=== PATIENT | male | born 1930 | race Caucasian/White ===

== ENCOUNTER 2017-01-16 14:18 | Day surgery (SDC) | payer MEDICARE, OTHER ==
[~2017-01-16] VITALS: Ht 177.8 cm; Wt 77.6 kg
[~2017-01-16 14:18] MED LIST: AC500T; ACET-2303; BNZ10T; CALC-793; CALC1TAB97; CALC600T; CALCIUM; CEPH500C PO; GLIP10TA13; GLIP2.5T3; GLIP2.5T9; GLIPIZIDE 2.5 MG; GLYB1.253 PO; HCTZ12.5T; HYDR-34; HYDR-34 PO; HYDR-707 PO; HYDR12.56; HYDR12.570 PO; LEVO500T2 PO; LOVA20TA2; LOVA20TA2 PO; MAGN400T6 PO; METF500T; METF500T4; METO50TA7; METO50TA7 PO; MTF500T; MULT-608; MULTIVIT; NEFA150T; OMEP20CA12; OMEP20TA7 PO; PHEN-640 PO; RANI-10; RANI150T66; SIMV40TA2; SULF1TAB38
--- OUTSIDE RECORDS SUMMARY | 2017-01-16 14:25 | XMS REPORT | Continuity of Care Document ---
Author Author [facility] Organization [facility] Address Unknown Phone Unavailable Care Team Providers Care Research Phlebotomist Name Role Phone LEI DESIR DO PCP Insurance Providers Payer Name Policy Number Subscriber Name Relationship Wps Medicare [id number] Leander Jacques 18 Self / Same As Patient Comm Crossover Enter Ins Name [id number] Leander Jacques Self / Same As Patient Advance Directives Directive Response Recorded Date/Time Advance Directives No 03/31/16 6:45am Health Care Power of Nutritional Services Cook No 03/31/16 6:45am Organ Donor No 03/31/16 6:45am Resuscitation Status Full Code 03/31/16 6:45am Problems No problem information available. Medications Current Home Medications Medication Dose Units Route Directions Days/Qty Instructions Start Date Lovastatin (Mevacor) 20 Mg 20 Mg Oral Daily 03/16/09 Hydrochlorothiazide 12.5 Mg 12.5 Mg Oral Daily 03/16/09 Metoprolol Succinate 50 Mg 50 Mg Oral Twice A Day 03/16/09 Multivitamins 1 Tab 03/16/09 Glyburide 1.25 Mg 1.25 Mg Oral Twice A Day 03/30/16 Omeprazole 20 Mg 20 Mg Oral Twice A Day 03/30/16 Levofloxacin 500 Mg 500 Mg Oral Daily 5 called in to [facility] pharmacy. 03/31/16 Phenazopyridine Hcl 200 Mg 1 Tab Oral Three Times A Day for Spasms 20 called in to [facility] pharmacy. 03/31/16 Past Home Medications Medication Directions Ordered Status [Glipizide 2.5 Mg] , 09/12/07 Discontinued Simvastatin 40 Mg Tablet, 09/12/07 Discontinued Metformin Hcl (Glucophage) 500 Mg Tablet, 09/12/07 Discontinued Omeprazole 20 Mg Capsule.dr, 09/12/07 Discontinued Metoprolol Succinate 50 Mg Tab.sr.24h, 09/12/07 Discontinued Hydrochlorothiazide 12.5 Mg Capsule, 09/12/07 Discontinued Benazepril Hcl 10 Mg Tablet, 02/28/09 Discontinued Glipizide 2.5 Mg Tab.sr.24h, 02/28/09 Discontinued Lovastatin 20 Mg Tablet, 02/28/09 Discontinued Ranitidine Hcl 150 Mg Tablet, 02/28/09 Discontinued Calcium Citrate/Vitamin D3 1 Each Tablet, 02/28/09 Discontinued Multivitamins 1 Tab Tablet, 02/28/09 Discontinued Acetaminophen 500 Mg Tablet, 02/28/09 Discontinued Metformin Hcl 500 Mg Tablet, 02/28/09 Discontinued Hydrochlorothiazide 12.5 Mg Tablet, 03/01/09 Discontinued Metoprolol Succinate 50 Mg Tab, 03/01/09 Discontinued Lovastatin (Mevacor) 20 Mg Tablet, 03/01/09 Discontinued Ranitidine Hcl 150 Mg Tablet, 03/01/09 Discontinued Calcium/Vitamin D 1 Tab Tablet, 03/01/09 Discontinued Multivitamins 1 Tab Tablet, 03/01/09 Discontinued Acetaminophen 500 Mg Tab, 03/01/09 Discontinued Metformin Hcl 500 Mg Tablet, 03/01/09 Discontinued Benazepril Hcl 10 Mg Tablet, 03/01/09 Discontinued Glipizide (Glucotrol) 10 Mg Tablet, 03/01/09 Discontinued Acetaminophen/Hydrocodone Bitart 1 Ea Tablet, 1 - 2 Tab Oral Every 4HRS 03/15 Discontinued Glipizide 2.5 Mg Tab, 03/16/09 Discontinued Lovastatin (Mevacor) 20 Mg Tablet, 03/16/09 Discontinued Metformin Hcl (Glucophage) 500 Mg Tablet, 03/16/09 Discontinued Ranitidine Hcl 150 Mg Tablet, 03/16/09 Discontinued Metoprolol Succinate 50 Mg Tab, 03/16/09 Discontinued Benazepril Hcl 10 Mg Tablet, 03/16/09 Discontinued Calcium , 03/16/09 Discontinued [Multivit] , 03/16/09 Discontinued Acetaminophen/Hydrocodone Bitart 1 Ea Tablet, 03/16/09 Discontinued Trimethoprim/Sulfamethoxazole 1 Ea Tablet, 03/16/09 Discontinued Glipizide 2.5 Mg Tab, 03/16/09 Discontinued Metformin Hcl (Glucophage) 500 Mg Tablet, 03/16/09 Discontinued Ranitidine Hcl 150 Mg Tablet, 03/16/09 Discontinued Benazepril Hcl 10 Mg Tablet, 03/16/09 Discontinued Calcium Carbonate 600 Mg Tablet, 03/16/09 Discontinued Acetaminophen/Hydrocodone Bitart 1 Each Tablet, 1 - 2 Each Oral Q 4 - 6 Hr Prn 04/29/09 Discontinued Cephalexin Monohydrate (Keflex) 500 Mg Capsule, 1 Each Oral Three Times A Day 04/29/09 Discontinued Magnesium Oxide 400 Mg Tablet, 1 Each Oral Twice A Day With Meals 01/21/10 Discontinued Levofloxacin 500 Mg Tablet, 500 Mg Oral Daily 03/31/16 Discontinued Phenazopyridine Hcl 200 Mg Tablet, 1 Tab Oral Three Times A Day for Spasms Discontinued Social History Social History Problem Response Recorded Date/Time Alcohol Use Past History 03/31/2016 6:45am Recreational Drug Use No 03/31/2016 6:45am Recent Foreign Travel No 03/31/2016 6:45am Sexually Transmitted Disease Y GONORRHEA MANY YEARS AGO 03/31/2016 6:45am Smoking Status Former Smoker 03/31/2016 6:45am Query Response Start Date Stop Date Smoking Status Former Smoker Hospital Discharge Instructions Patient Instructions Physician Instructions New, Converted, or Re-newed RX: RX on Chart Plan Please make appointment to been seen in office in 2 weeks. Increase oral fluids for 48 hours and then as needed. Diet and Activity as tolerated. If questions or concerns contact your physician Or seek help at emergency department. Plan of Care Discharge Date 03/31/16 9:55am Instructions/Education Provided ANESTHESIA INSTRUCTIONS POSTOP Prescriptions See Medication Section Functional Status No functional status results. Allergies, Adverse Reactions, Alerts Allergen Type Severity Reaction Status Last Updated Penicillins ([id number]) Allergy Unknown Active 09/12/07 lisinopril ([id number]) Allergy Unknown Active 09/12/07 Aspirin Allergy Unknown Active 09/12/07 Immunizations Name Given Type Date of Pneumonia Vaccine 03/30/13 Historical Vital Signs Acute Vital Signs Vital Response Date/Time Temperature (Fahrenheit) 97.2 degrees F (97.6 - 99.5) 03/31/2016 9:55am Temperature (Calculated Celsius) 35.96103 degrees C (36.4 - 37.5) 03/31/2016 9:20am Temperature Source Tympanic 03/31/2016 9:55am Pulse Rate (adult) 59 bpm (60 - 90) 03/31/2016 9:55am Respiratory Rate 16 bpm (12 - 24) 03/31/2016 9:55am O2 Sat by Pulse Oximetry 98 % (88 - 100) 03/31/2016 9:55am Blood Pressure 127/60 mm Hg 03/31/2016 9:55am Pain Pain Intensity 0 03/31/2016 9:20am Height (Feet) 5 feet 03/31/2016 6:45am Height (Inches) 9.00 inches 03/31/2016 6:45am Height (Calculated Centimeters) 175.549957 cm 03/31/2016 6:45am Weight (Pounds) 161 pounds 03/31/2016 6:45am Weight (Ounces) 0.0 oz 03/31/2016 6:45am Weight (Calculated Grams) 60102.372 gm 03/31/2016 6:45am Weight (Calculated Kilograms) 73.462290 kilograms 03/31/2016 6:45am Calculated BMI 26.79 03/31/2016 6:45am Results Pending Laboratory Results Test Name Collection Date/Time Procedures Procedure Status Date Provider(s) Transurethral resection of bladder tumor Completed 03/31/16 KAREN TOMAS MD Tracing only of electrocardiogram Active 03/31/16 KAMRYN ALVA CRNA Encounters Encounter Location Arrival/Admit Date Discharge/Depart Date Attending Provider Departed [facility] 03/31/16 6:06am 9:55am KAREN TOMAS MD Departed Clinic [facility] 03/30/16 5:36am 03/30/16 10: 01am KAREN TOMAS MD Registered Clinic [facility] 03/23/16 11:40am KAREN TOMAS MD
--- NOTE | 2017-01-16 14:48 | ED GI ---
General Chief Complaint: Oral/Throat Problems Stated Complaint: TROUBLE SWALLOWING Nursing Triage Note: c/o difficulty swallowing x2 days worse today. Sepsis Screen: No Definite Risk Source of Information: Patient, Family Exam Limitations: No Limitations History of Present Illness Time Seen By Provider: 14:44 Initial Comments This 86-year-old white male presents with esophageal food bolus that occurred after lunch today. Patient had a history of a minor similar episodes self- limited in nature yesterday. 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 The patient has been cared for by Dr. Cotter in the past to maybe the diagnosis. Patient has required EGD for evaluation by Dr. Roach in the past. This is the first episode in which the patient has been unable to spontaneously pass the food bolus. The patient is complaining of slight mid chest discomfort. Allergies and Home Medications Allergies Coded Allergies: Penicillins (Verified Allergy, Unknown, 09/12/07) aspirin (Verified Allergy, Unknown, 09/12/07) lisinopril (Verified Allergy, Unknown, 09/12/07) Home Medications Glyburide 1.25 Mg Tablet 1.25 MG PO BID (Reported) Hydrochlorothiazide 12.5 Mg Cap 12.5 MG PO DAILY (Reported) Lovastatin 20 Mg Tablet 20 MG PO DAILY (Reported) Metoprolol Succinate 50 Mg Tab 50 MG PO BID (Reported) Multivitamins 1 Tab Tablet (Reported) Omeprazole 20 Mg Tablet.dr 20 MG PO BID (Reported) Review of Systems Constitutional: No chills, No fever EENTM: No Eye Pain Respiratory: Denies Cough, Denies Shortness of Air Cardiovascular: Chest Pain (in the anterior mid chest region and patient has slight chest discomfort from his food bolus.) Gastrointestinal: Denies Abdomen Distended, Denies Abdominal Pain, Denies Diarrhea Genitourinary: Denies Burning, Denies Frequency Musculoskeletal: No back pain Skin: No rash Psychiatric/Neurological: No Symptoms Reported Endocrine: No Symptoms Reported Hematologic/Lymphatic: No Symptoms Reported Past Nujgaga-Qptpjq-Ftcmje Hx Patient Social History Alcohol Use: Denies Use Recreational Drug Use: No Smoking Status: Former Smoker Type Used: Cigarettes Recent Foreign Travel: No Contact w/Someone Who Travel: No Recent Infectious Disease Expo: No Recent Hopitalizations: No Immunizations Up To Date Date of Pneumonia Vaccine: March 30, 2013 Seasonal Allergies Seasonal Allergies: No Surgeries HX Surgeries: Yes (HERNIA X3, R TKR, left thumb joint replaced, bilat cataract removed) Respiratory Hx Respiratory Disorders: No Cardiovascular Hx Cardiac Disorders: Yes Cardiac Disorders: High Cholesterol, Hypertension Neurological Hx Neurological Disorders: Yes (polio when 10 yrs old) Reproductive System Hx Reproductive Disorders: No Sexually Transmitted Disease: Yes (GONORRHEA MANY YEARS AGO) Genitourinary Hx Genitourinary Disorders: Yes (bladder tumor) Gastrointestinal Hx Gastrointestinal Disorders: Yes Gastrointestinal Disorders: Gastroesophageal Reflux, Diverticulosis Musculoskeletal Hx Musculoskeletal Disorders: Yes Musculoskeletal Disorders: Arthritis Endocrine Hx Endocrine Disorders: Yes Endocrine Disorders: Diabetes, Non-Insulin dep HEENT HX ENT Disorders: Yes (HAS " ONE VOCAL CORD THAT DOESN'T WORK", cataracts removed) Cancer Hx Cancer: No Psychosocial Hx Psychiatric Problems: No Integumentary HX Skin/Integumentary Disorder: No Blood Transfusions Hx Blood Disorders: No Reviewed Nursing Assessment Reviewed/Agree w Nursing PMH: Yes Physical Exam Vital Signs VS - Last 72 Hours, by Label 01/16/17 01/16/17 01/16/17 14:27 15:37 16:20 Temp 98.4 Pulse 70 82 64 Resp 18 11 17 B/P 157/79 119/66 115/64 Pulse Ox 94 99 94 O2 Delivery Room Air Room Air Room Air Capillary Refill : Less Than 3 Seconds General Appearance: WD/WN mild distress HEENT: normal ENT inspection Neck: non-tender Respiratory: chest non-tender lungs clear normal breath sounds Cardiovascular: regular rate, rhythm no edema Gastrointestinal: normal bowel sounds non tender soft Extremities: normal range of motion non-tender normal inspection Neurologic/Psychiatric: no motor/sensory deficits alert normal mood/affect Skin: normal color warm/dry Progress/Results/Core Measures Results/Orders Lab Results Laboratory Tests Test 01/16/17 15:10 Range/Units Alanine Aminotransferase (ALT/SGPT) 27 0-55 U/L Albumin 4.0 3.2-4.5 G/DL Alkaline Phosphatase 50 40-136 U/L Anion Gap 11 5-14 MMOL/L Aspartate Amino Transf (AST/SGOT) 32 5-34 U/L BUN/Creatinine Ratio 12 Basophils # (Auto) 0.1 0.0-0.1 10^3/uL Basophils (%) (Auto) 1 0-10 % Blood Urea Nitrogen 22 H 7-18 MG/DL Calcium Level 9.5 8.5-10.1 MG/DL Carbon Dioxide Level 26 21-32 MMOL/L Chloride Level 102 98-107 MMOL/L Creatinine 1.86 H 0.60-1.30 MG/DL Eosinophils # (Auto) 0.1 0.0-0.3 10^3/uL Eosinophils (%) (Auto) 2 0-10 % Estimat Glomerular Filtration Rate 35 Glucose Level 148 H 70-105 MG/DL Hematocrit 39 L 40-54 % Hemoglobin 13.1 L 13.3-17.7 G/DL Lymphocytes # (Auto) 1.8 1.0-4.0 X 10^3 Lymphocytes (%) (Auto) 24 12-44 % Mean Corpuscular Hemoglobin 31 25-34 PG Mean Corpuscular Hemoglobin Concent 34 32-36 G/DL Mean Corpuscular Volume 91 80-99 FL Mean Platelet Volume 12.8 H 7.4-10.4 FL Monocytes # (Auto) 0.6 0.0-1.0 X 10^3 Monocytes (%) (Auto) 9 0-12 % Neutrophils # (Auto) 4.7 1.8-7.8 X 10^3 Neutrophils (%) (Auto) 65 42-75 % Platelet Count 177 130-400 10^3/uL Potassium Level 4.1 3.6-5.0 MMOL/L Red Blood Count 4.24 L 4.35-5.85 10^6/uL Red Cell Distribution Width 13.4 10.0-14.5 % Sodium Level 139 135-145 MMOL/L Total Bilirubin 0.6 0.1-1.0 MG/DL Total Protein 6.8 6.4-8.2 G/DL White Blood Count 7.3 4.3-11.0 10^3/uL My Orders Orders-ANNALISA GATICA MD Cbc With Automated Diff (01/16/17 14:50) Comprehensive Metabolic Panel (01/16/17 14:50) Chest 1 View, Ap/Pa Only (01/16/17 14:50) Ns Iv 1000 Ml (Sodium Chloride 0.9%) (01/16/17 15:00) Glucagon Emergency Kit (Glucagon Emergen (01/16/17 15:00) Diazepam Injection (Valium Injection) (01/16/17 15:00) Saline Lock/Iv-Start (01/16/17 15:00) Medications Given in ED Current Medications Medications Dose Ordered Sig/Franky Route Start Time Stop Time Status Last Admin Dose Admin Diazepam 5 mg ONCE ONCE IV 01/16/17 15:00 01/16/17 15:01 DC 01/16/17 15:10 5 MG Glucagon 1 mg ONCE ONCE IV 01/16/17 15:00 01/16/17 15:01 DC 01/16/17 15:10 1 MG Vital Signs/I&O Vital Sign - Last 12Hours 01/16/17 01/16/17 01/16/17 14:27 15:37 16:20 Temp 98.4 Pulse 70 82 64 Resp 18 11 17 B/P 157/79 119/66 115/64 Pulse Ox 94 99 94 O2 Delivery Room Air Room Air Room Air Blood Pressure Mean: 105 Progress Note : Time: 16:51 Progress Note I spoke to Dr. Alexander about food bolus. Tentative arrangements were made for the patient to be scoped later today. I attempted milligram of glucagon and 5 mg of Valium IV without resolution. At this juncture the patient will be admitted for EGD with Dr. Alexander. Departure Communication Time/Spoke to Admitting Phy: 16:[address] Alexander. Impression Impression: Primary Impression: Esophageal obstruction due to food impaction Disposition: ADMITTED INPATIENT Condition: Unchanged Decision to Admit Reason: Admit from ER (General) Decision to Admit/Date: Jan 16, 2017 Time/Decision to Admit Time: 16:53 Departure-Patient Inst. Referrals: LEI DESIR DO (PCP/Family) Primary Care Physician ANNALISA GATICA MD Jan 16, 2017 14:48
[2017-01-16] MEDS ORDERED: DIAZEPAM INJ 10 MG/2 ML (VALIUM) SYR IV ONE (15:00)
[2017-01-16] MEDS ORDERED: GLUCAGON EMERGENCY 1 MG/KIT IV ONE (15:00)
[2017-01-16] MEDS ORDERED: NS IV 1000 ML 1,000 ML IV SCH (15:00)
[2017-01-16 15:22] LABS: BASOPHILS # (AUTO) 0.1 10^3/uL (0.0-0.1); BASOPHILS % (AUTO) 1 % (0-10); EOSINOPHILS # (AUTO) 0.1 10^3/uL (0.0-0.3); EOSINOPHILS % (AUTO) 2 % (0-10); LYMPHOCYTES # (AUTO) 1.8 X 10^3 (1.0-4.0); LYMPHOCYTES % (AUTO) 24 % (12-44); MEAN CORPUSCULAR HEMOGLOBIN 31 PG (25-34); MEAN CORPUSCULAR HGB CONC 34 G/DL (32-36); MEAN CORPUSCULAR VOLUME 91 FL (80-99); MEAN PLATELET VOLUME 12.8 FL (7.4-10.4); MONOCYTES # (AUTO) 0.6 X 10^3 (0.0-1.0); MONOCYTES % (AUTO) 9 % (0-12); NEUTROPHILS # (AUTO) 4.7 X 10^3 (1.8-7.8); NEUTROPHILS % (AUTO) 65 % (42-75); PLATELET COUNT 177 10^3/uL (130-400); RED BLOOD COUNT 4.24 10^6/uL (4.35-5.85); RED CELL DISTRIBUTION WIDTH 13.4 % (10.0-14.5); WHITE BLOOD COUNT 7.3 10^3/uL (4.3-11.0)
--- NOTE | 2017-01-16 15:29 | Diagnostic Imaging Report ---
EXAMINATION: Chest one view. FINDINGS: No pneumothorax, mediastinal widening or pleural fluid demonstrated. There are mild increased interstitial markings throughout both lungs, increased from the prior study. This is nonspecific. No focal pneumonia is suspected. IMPRESSION: Mild increase in interstitial markings increased from the prior study but nonspecific. No focal pneumonia is demonstrated. Dictated by: Dictated on workstation # [id number]
[2017-01-16 15:37] VITALS: BP 119/66
[2017-01-16 15:42] LABS: BILIRUBIN,TOTAL 0.6 MG/DL (0.1-1.0); CALCIUM 9.5 MG/DL (8.5-10.1); CREATININE SERUM 1.86 MG/DL (0.60-1.30); POTASSIUM 4.1 MMOL/L (3.6-5.0); TOTAL PROTEIN 6.8 G/DL (6.4-8.2)
[2017-01-16 16:20] VITALS: BP 115/64
[2017-01-16 17:19] VITALS: BP 158/67
[2017-01-16] MEDS ORDERED: NS IV 500 ML 0 ML ONE (17:22)
[2017-01-16] MEDS ORDERED: LACTATED RINGERS 1,000 ML IV ONE (17:40)
[2017-01-16] MEDS ORDERED: MIDAZOLAM 2 MG/2 ML (VERSED) VIAL ONE (17:53)
[2017-01-16] MEDS ORDERED: fentaNYL INJECTION 100 MCG/2 ML AMP ONE (17:54)
--- NOTE | 2017-01-16 18:27 | Pre-Op Note & Conscious Sedat ---
Pre-Operative Progress Note H&P Reviewed The H&P was reviewed, patient examined and no changes noted. Date H&P Reviewed: Jan 16, 2017 Time H&P Reviewed: 17:10 Pre-Op Diagnosis: Food impaction in esophagus Conscious Sedation Pre-Proced ASA Class: 2 Airway Mallampati Classification: ([place] appropriate class) I. II. III, IV Lungs Heart ASA score ASA 1: a normal healthy patient ASA 2: a patient with a mild systemic disease (mid diabetes, controlled hypertension, obesity ASA 3: a patient with a severe systemic disease that limits activity (angina , COPD, prior Myocardial infarction) ASA 4: a patient with an incapacitating disease that is a constant threat to life (CHF, renal failure) ASA 5: a moribund patient not expected to survive 24 hrs. (ruptured aneurysm) ASA 6: a declared brain patient whose organs are being harvested. For emergent operations, add the letter E after the classification Grade 2 Sedation Plan: Discussed options with patient/fam Note The patient is an appropriate candidate to undergo the planned procedure, sedation, and anesthesia. The patient immediately re-assessed prior to indication. GIANNA KRAMER MD Jan 16, 2017 6:27 pm
--- NOTE | 2017-01-16 18:27 | History & Physicial ---
History of Present Illness History of Present Illness Reason for visit/HPI Food impaction in esophagus Date of Admission Jan 16, 2017 at 4:00 pm I consulted on this patient on 01/16/17 18:24 Attending Physician Gianna Kramer MD Admitting Physician Marilee Pena DO Consult Allergies and Home Medications Allergies Coded Allergies: Penicillins (Verified Allergy, Unknown, 09/12/07) aspirin (Verified Allergy, Unknown, 09/12/07) lisinopril (Verified Allergy, Unknown, 09/12/07) Home Medications Glyburide 1.25 Mg Tablet 1.25 MG PO BID (Reported) Hydrochlorothiazide 12.5 Mg Cap 12.5 MG PO DAILY (Reported) Lovastatin 20 Mg Tablet 20 MG PO DAILY (Reported) Metoprolol Succinate 50 Mg Tab 50 MG PO BID (Reported) Multivitamins 1 Tab Tablet (Reported) Omeprazole 20 Mg Tablet.dr 20 MG PO BID (Reported) Past Rfthtfk-Yqdebq-Xeyang Hx Patient Social History Marrital Status: Employed/Student: retired Alcohol Use: Denies Use Recreational Drug Use: No Smoking Status: Former Smoker Type Used: Cigarettes Physical Abuse Screen: No Sexual Abuse: No Recent Foreign Travel: No Contact w/other who traveled: No Recent Hopitalizations: No Recent Infectious Disease Expo: No Immunizations Up To Date Date of Pneumonia Vaccine: March 30, 2013 Date of Influenza Vaccine: Aug 15, 2016 Seasonal Allergies Seasonal Allergies: No Surgeries HX Surgeries: Yes (HERNIA X3, R TKR, left thumb joint replaced, bilat cataract removed) Respiratory Hx Respiratory Disorders: No Cardiovascular Hx Cardiovascular Disorders: Yes Cardiac Disorders: High Cholesterol, Hypertension Neurological Hx Neurological Disorders: Yes (polio when 10 yrs old) Reproductive System Hx Reproductive Disorders: No Sexually Transmitted Disease: Yes (GONORRHEA MANY YEARS AGO) Genitourinary Hx Genitourinary Disorders: Yes (bladder tumor) Gastrointestinal Hx Gastrointestinal Disorders: Yes Gastrointestinal Disorders: Gastroesophageal Reflux, Hiatal Hernia, Gall Bladder Disease Musculoskeletal Hx Musculoskeletal Disorders: Yes Musculoskeletal Disorders: Arthritis Endocrine Hx Endocrine Disorders: Yes Endocrine Disorders: Diabetes, Non-Insulin dep HEENT HX ENT Disorders: Yes (HAS " ONE VOCAL CORD THAT DOESN'T WORK", cataracts removed) HEENT Disorders: Cataract Loss of Vision: Denies Hearing Impairment: Denies Cancer Hx Cancer: No Psychosocial Hx Psychiatric Problems: No Integumentary HX Skin/Integumentary Disorder: No Blood Transfusions Hx Blood Disorders: No Reviewed Nursing Assessment Reviewed/Agree w Nursing PMH: Yes Constitutional: no symptoms reported EENTM: no symptoms reported Respiratory: cough Cardiovascular: no symptoms reported Gastrointestinal: see HPI Genitourinary: no symptoms reported Musculoskeletal: no symptoms reported Skin: no symptoms reported Psychiatric/Neurological: No Symptoms Reported Physical Exam Vital Signs Vital Sign - Last 12Hours 01/16/17 14:27 Temp 98.4 Pulse 70 Resp 18 B/P 157/79 Pulse Ox 94 O2 Delivery Room Air Capillary Refill : Less Than 3 Seconds General Appearance: Anxious HEENT: PERRL/EOMI Neck: Normal Inspection Respiratory: Lungs Clear Cardiovascular: Regular Rate, Rhythm Gastrointestinal: Non Tender Soft Extremity: Normal Inspection Assessment/Plan Assessment and Plan Food impaction in esophagus-For endoscopic disimpaction Admission Diagnosis Same GIANNA KRAMER MD Jan 16, 2017 6:27 pm
--- NOTE | 2017-01-16 18:28 | Progress Note-Post Operative ---
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
--- NOTE | 2017-01-16 18:29 | Discharge Inst-Simple/Standard ---
Discharge Inst-Standard Discharge Medications New, Converted or Re-Newed RX: Other Patient Instructions/Follow Up Plan of Care/Instructions/FU: Soft diet Activity as Tolerated: Yes Discharge Diet: Soft Diet GIANNA KRAMER MD Jan 16, 2017 6:29 pm
[2017-01-16 18:50] VITALS: BP 132/71
[2017-01-16] MEDS ORDERED: MIDAZOLAM 10 MG/2 ML (VERSED) VIAL IVP PRN (19:15)
[2017-01-16] MEDS ORDERED: fentaNYL INJECTION 100 MCG/2 ML AMP IVP PRN (19:15)
[2017-01-16 20:30] VITALS: BP 132/71
--- NOTE | 2017-01-16 23:31 | PROCEDURE REPORT ---
PROCEDURE PHYSICIAN: GIANNA KRAMER DATE OF PROCEDURE: 01/16/2017 DIAGNOSES: Food impaction in the esophagus. PROCEDURE: Upper GI endoscopy with disimpaction of food. SURGEON: Dr. Kramer. INDICATION FOR THE PROCEDURE: This gentleman presented with recurrent impaction of food in his esophagus. He was offered therapeutic endoscopy. Informed consent was obtained after reviewing the procedure in detail. DESCRIPTION OF PROCEDURE: He was brought to the Intensive Care Unit and monitored in the conventional manner. He was then placed in left lateral decubitus position and conscious sedation achieved using Versed and fentanyl. The flexible gastroscope was introduced down the esophagus where impacted pieces of meat were encountered at the mid esophagus. These were gently disimpacted into the stomach. The mucosa was then irrigated with water and a thorough examination performed. FINDINGS: 1. Corkscrew type of configuration contributing to his impaction. 2. An epiphrenic diverticulum of long-standing duration. There were minimal food particles but it was felt appropriate to avoid manipulation, for fear of perforation. STOMACH AND DUODENUM: Were normal. He tolerated the procedure well and was taken back to the nursing area in a stable condition. IMPRESSION: 1. Successful disimpaction of food. 2. Corkscrew esophagus. 3. Epiphrenic diverticulum encountered. Job ID: [id number] Dictated Date: 01/16/2017 18:22:55 Filler Sifter Helper Date: 01/16/2017 23:27:15 / yvette COLLINS
--- OUTSIDE RECORDS SUMMARY | 2017-01-19 09:59 | XMS REPORT | Continuity of Care Document ---
Author Author [facility] Organization [facility] Address Unknown Phone Unavailable Care Team Providers Care Industrial Maintenance Manager Name Role Phone LEI DESIR DO PCP Insurance Providers Payer Name Policy Number Subscriber Name Relationship Wps Medicare [id number] Leander Jacques 18 Self / Same As Patient Comm Crossover Enter Ins Name [id number] Leander Jacques Self / Same As Patient Advance Directives Directive Response Recorded Date/Time Advance Directives No 03/31/16 6:45am Health Care Power of Strip Tank Tender No 03/31/16 6:45am Organ Donor No 03/31/16 [...] Mg Oral Daily 5 called in to [facility]. 03/31/16 Phenazopyridine Hcl 200 Mg 1 Tab Oral Three Times A Day for Spasms 20 called in to [facility] pharmacy. 03/31/16 Past Home Medications Medication Directions [...] Type Severity Reaction Status Last Updated Penicillins ([id number]) Allergy Unknown Active 09/12/07 lisinopril ([id number]) Allergy Unknown Active 09/12/07 Aspirin Allergy Unknown Active 09/12/07 Immunizations Name Given Type Date of Pneumonia Vaccine 03/30/13 Historical Vital Signs Acute Vital Signs Vital Response Date/Time Temperature (Fahrenheit) 97.2 degrees F (97.6 - 99.5) 03/31/2016 9:55am Temperature (Calculated Celsius) 35.85218 degrees C (36.4 - 37.5) 03/31/2016 9:20am [...] 9.00 inches 03/31/2016 6:45am Height (Calculated Centimeters) 175.062615 cm 03/31/2016 6:45am Weight (Pounds) 161 pounds 03/31/2016 6:45am Weight (Ounces) 0.0 oz 03/31/2016 6:45am Weight (Calculated Grams) 25033.372 gm 03/31/2016 6:45am Weight (Calculated Kilograms) 73.344507 kilograms 03/31/2016 6:45am Calculated BMI 26.79 03/31/2016 6:45am Results Pending Laboratory Results Test Name Collection Date/Time Procedures Procedure Status Date Provider(s) Transurethral resection of bladder tumor Completed 03/31/16 KAREN TOMAS MD Tracing only of electrocardiogram Active 03/31/16 KAMRYN ALVA CRNA Encounters Encounter Location Arrival/Admit Date Discharge/Depart Date Attending Provider Departed [facility] 03/31/16 6:06am 9:55am KAREN TOMAS MD Departed Clinic [facility] 03/30/16 5:36am 03/30/16 10: 01am KAREN TOMAS MD Registered Clinic [facility] 03/23/16 11:40am KAREN TOMAS MD
--- OUTSIDE RECORDS SUMMARY | 2017-01-19 10:00 | XMS REPORT | Continuity of Care Document ---
Author Author [facility] Organization [facility] Address Unknown Phone Unavailable Care Team Providers Care Capital Project Engineer Name Role Phone LEI DESIR DO PCP Insurance Providers Payer Name Policy Number Subscriber Name Relationship Wps Medicare [id number] Leander Jacques 19 Self / Same As Patient Comm Crossover Enter Ins Name [id number] Leander Jacques Self / Same As Patient Advance Directives Directive Response Recorded Date/Time Advance Directives No 03/31/16 6:45am Health Care Power of Automotive Mechanic No 03/31/16 6:45am Organ Donor No 03/31/16 [...] Mg Oral Daily 5 called in to [facility]. 03/31/16 Phenazopyridine Hcl 200 Mg 1 Tab Oral Three Times A Day for Spasms 20 called in to [facility] pharmacy. 03/31/16 Past Home Medications Medication Directions [...] Type Severity Reaction Status Last Updated Penicillins ([id number]) Allergy Unknown Active 09/12/07 lisinopril ([id number]) Allergy Unknown Active 09/12/07 Aspirin Allergy Unknown Active 09/12/07 Immunizations Name Given Type Date of Pneumonia Vaccine 03/30/13 Historical Vital Signs Acute Vital Signs Vital Response Date/Time Temperature (Fahrenheit) 97.2 degrees F (97.6 - 99.5) 03/31/2016 9:55am Temperature (Calculated Celsius) 35.29387 degrees C (36.4 - 37.5) 03/31/2016 9:20am [...] 9.00 inches 03/31/2016 6:45am Height (Calculated Centimeters) 175.634316 cm 03/31/2016 6:45am Weight (Pounds) 161 pounds 03/31/2016 6:45am Weight (Ounces) 0.0 oz 03/31/2016 6:45am Weight (Calculated Grams) 11799.372 gm 03/31/2016 6:45am Weight (Calculated Kilograms) 73.296536 kilograms 03/31/2016 6:45am Calculated BMI 26.79 03/31/2016 6:45am Results Pending Laboratory Results Test Name Collection Date/Time Procedures Procedure Status Date Provider(s) Transurethral resection of bladder tumor Completed 03/31/16 KAREN TOMAS MD Tracing only of electrocardiogram Active 03/31/16 KAMRYN ALVA CRNA Encounters Encounter Location Arrival/Admit Date Discharge/Depart Date Attending Provider Departed [facility] 03/31/16 6:06am 9:55am KAREN TOMAS MD Departed Clinic [facility] 03/30/16 5:36am 03/30/16 10: 01am KAREN TOMAS MD Registered Clinic [facility] 03/23/16 11:40am KAREN TOMAS MD
== END 2017-01-16 20:30 | disposition home or self-care (01) ==
LOC: EDUNIT# 14:18 → ER 14:20 → UNDOADMOB 16:00 → 4TH 16:00 → SDC 17:30 → UNDODISOB 20:30
PROVIDERS: ATTEND Surgery
DX: T18.128A Food in esophagus causing other injury, initial encounter (principal); K22.4 Dyskinesia of esophagus; K22.5 Diverticulum of esophagus, acquired; I10 Essential (primary) hypertension; E11.9 Type 2 diabetes mellitus without complications; Z79.899 Other long term (current) drug therapy
CPT/HCPCS: 36415; 71010; 80053; 85025; 96361; 96374; 96375

== ENCOUNTER 2017-06-28 09:25 | Emergency (ER) | payer MEDICARE, OTHER ==
[~2017-06-28] VITALS: Ht 177.8 cm; Wt 73.0 kg
--- OUTSIDE RECORDS SUMMARY | 2017-06-28 09:32 | XMS REPORT | Clinical Summary ---
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 Active Marilee Pena Diabetes mellitus without mention of complication, type II or unspecified type, uncontrolled HYPERTENSION 401.1 Active Marilee Pena Benign essential hypertension HYPERCHOLESTEROLEMIA 272.0 Active Marilee Pena Pure hypercholesterolemia 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 Marilee Pena Proteinuria PNEUMONIA 486 Resolved Marilee Pena Pneumonia, organism unspecified HEADACHE 784.0 Active Marilee Pena Headache HICCUPS, CHRONIC 786.8 Resolved Marilee Pena Hiccough COUGH 786.2 Resolved Marilee Pena Cough HYPOMAGNESEMIA 275.2 Resolved Marilee Pena Disorders of magnesium metabolism DIVERTICULOSIS, COLON 562.10 Resolved Marilee Pena Diverticulosis of colon (without mention of hemorrhage) BACK PAIN 724.5 Resolved Marilee Pena Backache, unspecified TINEA CRURIS 110.3 Resolved Marilee Pena Dermatophytosis of groin and perianal area BRONCHITIS 490 Resolved Marilee Pena Bronchitis, not specified as acute or chronic BACK PAIN, THORACIC REGION 724.1 Resolved Marilee Pena Pain in thoracic spine HEMATURIA, GROSS 599.7 Resolved Marilee Pena Hematuria HYPERLIPIDEMIA 272.4 Resolved Marilee Pena Other and unspecified hyperlipidemia RENAL INSUFFICIENCY 593.9 Active Mrailee Pena Unspecified disorder of kidney and ureter CHEST PAIN, ATYPICAL 786.59 Resolved Marilee Pena Other chest pain BRONCHITIS 490 Resolved Marilee Pena Bronchitis, not specified as acute or chronic DYSPHAGIA PHARYNGOESOPHAGEAL PHASE 787.24 Active Marilee Pena Dysphagia, pharyngoesophageal phase Medication List Medication Instructions Start Date Stop Date Generic Name ND Status Provider Patient Instruction DIABETA 2.5 MG TABS 1 PO BID GLYBURIDE 90388847288 Active Marilee Pena IPRATROPIUM BROMIDE 0.06 % SOLN 1 puff each nostril up to TID IPRATROPIUM BROMIDE 08388658732 Active Marilee Pena OMEPRAZOLE 40 MG CPDR 1 po daily OMEPRAZOLE 46697673636 Active Cristy Olmstead METFORMIN HCL 1000 MG TABS 1 PO BID METFORMIN HCL 24259754144 No Longer Active Marilee Pena TRIAMCINOLONE ACETONIDE 0.025 % CREA as directed TRIAMCINOLONE ACETONIDE 36729943087 Active Phil Rolle BETAMETHASONE VALERATE 0.1 % CREA Apply to affected area once daily BETAMETHASONE VALERATE 50771578758 No Longer Active Marilee Shu Pena TRIAMCINOLONE ACETONIDE 0.025 % CREA Apply to affected areas daily prn 04/01 TRIAMCINOLONE ACETONIDE 63588395705 No Longer Active Marilee Shu Pena KEFLEX 500 MG CAP 1 PO TID for 7 days CEPHALEXIN 38265877553 No Longer Active Cristy Olmstead ROBITUSSIN A-C 10-100 MG/5ML SYRUP 1 teaspoon PO Q 4-6 hr prn ROBITUSSIN A-C 10-100 MG/5ML SYRUP No Longer Active Marilee Shu Pena BIAXIN 500 MG TAB 1 PO BID CLARITHROMYCIN 10878422241 No Longer Active Marilee Shu Pena PROTONIX 40 MG TBEC 1 po qd PANTOPRAZOLE SODIUM 10025069304 No Longer Active Marilee Shu Pena OMEPRAZOLE 20 MG CPDR 1 PO daily OMEPRAZOLE 01844006694 No Longer Active Marilee Shu Pena BENZONATATE 100 MG CAPS 1 PO TID PRN BENZONATATE 34876865205 No Longer Active Marilee Shu Pena TESSALON 200 MG CAPS 1 PO TID prn cough BENZONATATE 31793176913 No Longer Active Marilee Shu Pena KEFLEX 500 MG CAP 1 PO TID for 7 days CEPHALEXIN 18531472899 No Longer Active Marilee Shu Pena LOTRIMIN AF 1 % CREA Apply to affected areas twice daily. CLOTRIMAZOLE 62401061734 No Longer Active Marilee Shu Pena LOTRIMIN AF 2 % POWD Apply to affected areas twice daily. MICONAZOLE NITRATE 49184654005 No Longer Active Marilee Shu Pena GLIPIZIDE 5 MG TAB 1/2 tab PO BID GLIPIZIDE 13083291050 No Longer Active Marilee Shu Pena LAMISIL 250 MG TABS 1 PO QD TERBINAFINE HCL 52906156691 No Longer Active Marilee Shu Pena ATROVENT 0.06 % SOLN 2 puffs each nostril TID prn runny nose 2009 IPRATROPIUM BROMIDE 80930022764 No Longer Active Marilee Shu Pena MAGNESIUM OXIDE 400 MG CAPS 1 PO daily MAGNESIUM OXIDE 71315275005 No Longer Active Marilee Shu Pena FLAXSEED OIL CAPS 1 PO daily FLAXSEED (LINSEED) CAPS 04827822209 Active Marilee Shu Pena CALTRATE 600 PLUS-VIT D 600-200 MG-IU TABS 1 PO BID CALCIUM- VITAMIN D 73314375736 No Longer Active Marilee Shu Pena RANITIDINE HCL 150 MG CAPS 1 PO BID RANITIDINE HCL 09243204955 No Longer Active Marilee Shu Pena FIORINAL 325-50-40 MG CAP 1-2 PO Q6hrs prn headache [id number] 30479764081 No Longer Active Marileeconstanza Pena METOPROLOL TARTRATE 50 MG TAB 1 PO BID METOPROLOL TARTRATE 60128086802 Active Cristy Olmstead LOTENSIN 10 MG TABS 1 PO daily BENAZEPRIL HCL 80097846119 No Longer Active Marileeconstanza Pena TYLENOL EX ST ARTHRITIS PAIN TABS 2 PO Q6hrs prn ACETAMINOPHEN TABS 77224883930 Active Marilee Shu Pena MULTIVITAMINS TABS 1 PO QD MULTIPLE VITAMIN 53892256396 Active Marileeconstanza Pena HYDROCHLOROTHIAZIDE 12.5 MG CAPS 1 PO QD HYDROCHLOROTHIAZIDE 03165842002 Active Cristy Olmstead MEVACOR 20 MG TABS 1 PO daily LOVASTATIN Active Cristy Olmstead Immunizations Vaccine Administration Date Value Standard Description Influenza vaccine given done influenza virus vaccine, unspecified formulation dT (Diphtheria and Tetanus) booster given DONE Td(adult) unspecified formulation pneumococcal immunization administered 06/28 pneumococcal polysaccharide vaccine, 23 valent Influenza vaccine given Done [facility] influenza virus vaccine, unspecified formulation Influenza vaccine given Done influenza virus vaccine, unspecified formulation Influenza vaccine given Done influenza virus vaccine, unspecified formulation Vital Signs Date Name Value Unit Range Description blood pressure, diastolic - 8462-4 70 mm[Hg] BP hogan blood pressure, systolic - 8480-6 140 mm[Hg] BP sys pulse rate E&M - 8867-4 82 /min Heart rate respiratory rate E&M - 9279-1 14 /min Resp rate temperature E&M 98.6 [degF] Body temperature weight E&M - 3141-9 175 [lb_av] Weight Measured blood pressure, diastolic - 8462-4 70 mm[Hg] BP hogan blood pressure, systolic - 8480-6 118 mm[Hg] BP sys pulse rate E&M - 8867-4 64 /min Heart rate respiratory rate E&M - 9279-1 14 /min Resp rate weight E&M - 3141-9 168 [lb_av] Weight Measured blood pressure, diastolic - 8462-4 78 mm[Hg] BP hogan blood pressure, systolic - 8480-6 142 mm[Hg] BP sys pulse rate E&M - 8867-4 66 /min Heart rate respiratory rate E&M - 9279-1 14 /min Resp rate weight E&M - 3141-9 162 [lb_av] Weight Measured blood pressure, diastolic - 8462-4 78 mm[Hg] BP hogan blood pressure, systolic - 8480-6 120 mm[Hg] BP sys pulse rate E&M - 8867-4 66 /min Heart rate respiratory rate E&M - 9279-1 14 /min Resp rate weight E&M - 3141-9 170 [lb_av] Weight Measured blood pressure, diastolic - 8462-4 72 mm[Hg] BP hogan blood pressure, systolic - 8480-6 118 mm[Hg] BP sys pulse rate E&M - 8867-4 74 /min Heart rate respiratory rate E&M - 9279-1 14 /min Resp rate weight E&M - 3141-9 173 [lb_av] Weight Measured Diagnostic Results Date Name Value Unit Range Description Clinical Lists Update: CBC,CMP,Chol,Trig,HgA1c - Chemistry Estimated Glomerular Filtration Rate (calc) 38 mL/min/1.73m2 glucose, plasma fasting 154 mg/dL albumin, serum 4.2 g/dL alkaline phosphatase, serum 52 U/L urea nitrogen, blood 32 mg/dL calcium, serum 9.9 mg/dL chloride, serum 100 mmol/L carbon dioxide, venous blood 29.0 mmol/L anion gap, serum 14 sodium, serum 139 mmol/L bilirubin, serum, total 0.9 mg/dL alanine aminotransferase (SGPT), serum 14 U/L aspartate aminotransferase (SGOT), serum 19 U/L protein, total, serum 7.3 g/dL potassium, serum 3.6 mmol/L hemoglobin A1C, blood, as % of total hemoglobin 7.4 % creatinine, serum 1.8 mg/dL Clinical Lists Update: CBC,CMP,Chol,Trig,HgA1c - Hematology leukocyte count, blood 7.7 10*3/mm3 mean corpuscular volume, RBC 92 fL red blood cell distribution width 14.6 % hemoglobin, blood 13.1 g/dL platelet count 175 10*3/mm3 erythrocyte (RBC) count 4.29 10*6/mm3 hematocrit, blood 40 % Clinical Lists Update: CBC,CMP,FLP,HgA1c,TSH - Chemistry Estimated Glomerular Filtration Rate (calc) 38.4 mL/min/1.73m2 glucose, plasma fasting 129 mg/dL sodium, serum 140 mmol/L triglyceride, serum, fasting 244 mg/dL bilirubin, serum, total 0.95 mg/dL alanine aminotransferase (SGPT), serum 21 U/L aspartate aminotransferase (SGOT), serum 24 U/L protein, total, serum 7.8 g/dL potassium, serum 4.0 mmol/L LDL cholesterol, serum 61.2 mg/dL thyroid stimulating hormone, serum 0.91 u[iU]/mL hemoglobin A1C, blood, as % of total hemoglobin 7.2 % HDL cholesterol, serum 32 mg/dL creatinine, serum 1.71 mg/dL carbon dioxide, venous blood 27 mmol/L cholesterol, serum 142 mg/dL chloride, serum 102 mmol/L calcium, serum 9.6 mg/dL alkaline phosphatase, serum 48 U/L albumin, serum 4.2 g/dL Clinical Lists Update: CBC,CMP,FLP,HgA1c,TSH - Hematology hematocrit, blood 40.7 % red blood cell distribution width 15.3 % platelet count 164 10*3/mm3 mean corpuscular volume, RBC 89.5 fL erythrocyte (RBC) count 4.55 10*6/mm3 leukocyte count, blood 6.8 10*3/mm3 hemoglobin, blood 13.8 g/dL Clinical Lists Update: CMP,Chol,Trig,HgA1c,Microalbumin - Chemistry triglyceride, serum, fasting 208 mg/dL sodium, serum 135 mmol/L anion gap, serum 11 glucose, plasma fasting 175 mg/dL Estimated Glomerular Filtration Rate (calc) 43 mL/min/1.73m2 albumin, serum 4.1 g/dL alkaline phosphatase, serum 56 U/L urea nitrogen, blood 23 mg/dL calcium, serum 9.6 mg/dL chloride, serum 99 mmol/L cholesterol, serum 125 mg/dL carbon dioxide, venous blood 29.0 mmol/L creatinine, serum 1.6 mg/dL hemoglobin A1C, blood, as % of total hemoglobin 8.0 % potassium, serum 4.0 mmol/L protein, total, serum 6.9 g/dL aspartate aminotransferase (SGOT), serum 24 U/L alanine aminotransferase (SGPT), serum 22 U/L bilirubin, serum, total 0.7 mg/dL Clinical Lists Update: CMP,Chol,Trig,HgA1c,Microalbumin - Urinalysis microalbumin, urine, semiquantitative 1.5 mg/dL Clinical Lists Update: CMP,FLP,HgA1c - Chemistry bilirubin, serum, total 0.7 mg/dL triglyceride, serum, fasting 210 mg/dL cholesterol, serum 132 mg/dL sodium, serum 137 mmol/L chloride, serum 101 mmol/L anion gap, serum 9 calcium, serum 10.0 mg/dL creatinine, serum 1.6 mg/dL HDL cholesterol, serum 34.0 mg/dL albumin, serum 4.2 g/dL hemoglobin A1C, blood, as % of total hemoglobin 7.4 % LDL cholesterol, serum 56 mg/dL potassium, serum 4.0 mmol/L alkaline phosphatase, serum 43 U/L protein, total, serum 6.9 g/dL glucose, plasma fasting 129 mg/dL aspartate aminotransferase (SGOT), serum 27 U/L urea nitrogen, blood 22 mg/dL alanine aminotransferase (SGPT), serum 21 U/L cholesterol/HDL ratio, serum, percent 3.9 Estimated Glomerular Filtration Rate (calc) 44 mL/min/1.73m2 carbon dioxide, venous blood 31.0 mmol/L Encounters Code Encounter Date Provider Facility CPT-26447 Ofc Vst, Est Level III 10:15:37 CDT Marilee Shu Pena DO, FACP CPT-15274 Ofc Vst, Est Level III 16:47:51 CDT Marilee Shu Pena DO, FACP CPT-32153 Ofc Vst, Est Level III 16:49:29 RADIO[facility] Ofc Vst, Est Level III 11:45:17 CDT Marilee Shu Pena DO, FACP CPT-02489 Ofc Vst, Est Level III 16:55:59 [facility]PT-01536 Ofc Vst, Est Level III 11:16:25 [facility]PT-78217 Ofc Vst, Est Level III 15:16:13 [facility] CPT-30194 Ofc Vst, Est Level III 21:31:17 RADIO[facility]TV [facility]NIC[facility]PT-47091 Ofc Vst, Est Level IV 15:44:47 [facility] CPT-05704 Ofc Vst, Est Level IV 14:28:11 [facility] CPT-53228 Ofc Vst, Est Level IV 15:30:55 CDT [facility] OFFICE CPT-11962 Ofc Vst, Est Level IV 14:06:31 [facility] Ofc Vst, Est Level IV 14:01:46 RADIO/TV TECHNICIAN Marilee [facility] OFFICE CPT-29254 Ofc Vst, Est Level III 15:20:36 RADIO/TV TECHNICIAN Marilee [facility] OFFICE CPT-67464 Ofc Vst, Est Level III 10:52:40 RADIO/TV TECHNICIAN Marilee Shu Pena Marilee Corina DO Becky, FACP CPT-79528 Ofc Vst, Est Level II 15:34:21 CDT Marilee [facility] OFFICE CPT-74694 Ofc Vst, Est Level IV 14:05:49 CDT Marilee [facility] OFFICE CPT-46270 Ofc Vst, Est Level IV 14:47:29 CDT Marilee [facility] OFFICE CPT-21868 Ofc Vst, Est Level IV 14:02:33 RADIO/TV TECHNICIAN [facility] OFFICE CPT-15875 Ofc Vst, Est Level IV 14:04:39 CDT Marilee [facility] OFFICE CPT-86848 Ofc Vst, Est Level IV 15:17:07 [facility]77 Ofc Vst, Est Level IV 14:05:04 CDT Marilee [facility] OFFICE CPT-07993 Ofc Vst, Est Level IV 11:16:18 CDT Marilee Shuarnol Pena [facility] Becky DO, FACP CPT-08627 Ofc Vst, Est Level IV 14:19:49 RADIO/TV TECHNICIAN [facility] OFFICE CPT-86269 Ofc Vst, Est Level IV 14:00:36 CDT Marilee [facility] OFFICE CPT-28840 Ofc Vst, Est Level IV 15:03:56 CDT [facility] OFFICE CPT-08346 Ofc Vst, Est Level IV 14:08:16 CDT [facility] OFFICE CPT-35451 Ofc Vst, Est Level IV 15:16:25 CDT [facility] OFFICE CPT-35308 Ofc Vst, New Level IV 14:23:20 CDT [facility] OFFICE Procedures Code Procedure Name Date Entry Date Standard Description CPT-G0439 Medicare Annual Wellness Visit 16:35:49 RADIO/TV TECHNICIAN CPT-G8443 E-Prescribing Medication Sent 20:44:37 RADIO/TV TECHNICIAN CPT-G0439 Medicare Annual Wellness Visit 20:44:37 RADIO/TV TECHNICIAN CPT-G8445 E-Prescribing Not sent due to no medication given 11:16: 25 CDT CPT-G8445 E-Prescribing Not sent due to no medication given 15:16: 13 CDT CPT-G8446 E-Prescribing not done due to controlled substance 21:31 :17 RADIO/TV TECHNICIAN CPT-G8443 E-Prescribing Medication Sent 13:44:31 RADIO/TV TECHNICIAN CPT-G0439 Medicare Annual Wellness Visit 13:44:31 RADIO/TV TECHNICIAN CPT-8446 E-Prescribing not done due to controlled substance 15:16: 25 CDT
--- OUTSIDE RECORDS SUMMARY | 2017-06-28 09:33 | XMS REPORT | Clinical Summary ---
Author Author User, [facility], [place] IP Address Unknown Phone Unavailable Allergies, Adverse Reactions, Alerts Allergy Name Reaction Description Start Date Severity Status Provider ASPIRIN Stomach ulcers Critical Active Marilee Pena MICHELIEN INHIBITORS Critical Active Marilee Pena PENICILLIN Critical [...] and unspecified hyperlipidemia RENAL INSUFFICIENCY 593.9 Active Marilee Pena Unspecified disorder of kidney and ureter CHEST PAIN, ATYPICAL 786.59 Resolved Marilee Pena Other chest pain BRONCHITIS 490 Resolved Marilee Pena Bronchitis, not specified as acute or chronic DYSPHAGIA PHARYNGOESOPHAGEAL PHASE 787.24 Active Marilee Pena Dysphagia, pharyngoesophageal phase Medication List Medication Instructions Start Date Stop Date Generic Name NDC Status Provider Patient Instruction HUMULIN N 100 UNIT/ML SUSP 10 units BID INSULIN NPH HUMAN ( ISOPHANE) 07382723216 Active Marilee Pena DIABETA 2.5 MG TABS 1 PO BID GLYBURIDE 82503117862 Active Marilee Pena IPRATROPIUM BROMIDE 0.06 % SOLN 1 puff each nostril up to TID IPRATROPIUM BROMIDE 54134665987 Active Marilee Pena OMEPRAZOLE 40 MG CPDR 1 po daily OMEPRAZOLE 94752109424 Active Cristy Olmstead METFORMIN HCL 1000 MG TABS 1 PO BID METFORMIN HCL 93601966253 No Longer Active Marilee Pena TRIAMCINOLONE ACETONIDE 0.025 % CREA as directed TRIAMCINOLONE ACETONIDE 98151231063 Active Phil Rolle BETAMETHASONE VALERATE 0.1 % CREA Apply to affected area once daily BETAMETHASONE VALERATE 97419536535 No Longer Active Marilee Shu Pena TRIAMCINOLONE ACETONIDE 0.025 % CREA Apply to affected areas daily prn 04/01 TRIAMCINOLONE ACETONIDE 89797805933 No Longer Active Marilee Shu Pena KEFLEX 500 MG CAP 1 PO TID for 7 days CEPHALEXIN 05116059605 No Longer Active Cristy Ishan ROBITUSSIN A-C 10-100 MG/5ML SYRUP 1 teaspoon PO Q 4-6 hr prn ROBITUSSIN A-C 10-100 MG/5ML SYRUP No Longer Active Marilee Shu Pena BIAXIN 500 MG TAB 1 PO BID CLARITHROMYCIN 09684735211 No Longer Active Marilee Shu Pena PROTONIX 40 MG TBEC 1 po qd PANTOPRAZOLE SODIUM 05995928520 No Longer Active Marilee Shu Pena OMEPRAZOLE 20 MG CPDR 1 PO daily OMEPRAZOLE 67608266669 No Longer Active Marilee Shu Pena BENZONATATE 100 MG CAPS 1 PO TID PRN BENZONATATE 65388259306 No Longer Active Marilee Shu Pena TESSALON 200 MG CAPS 1 PO TID prn cough BENZONATATE 11189831571 No Longer Active Marilee Shu Pena KEFLEX 500 MG CAP 1 PO TID for 7 days CEPHALEXIN 02397194599 No Longer Active Marilee Shu Pena LOTRIMIN AF 1 % CREA Apply to affected areas twice daily. CLOTRIMAZOLE 80080803895 No Longer Active Marilee Shu Pena LOTRIMIN AF 2 % POWD Apply to affected areas twice daily. MICONAZOLE NITRATE 65887686185 No Longer Active Marilee Shu Pena GLIPIZIDE 5 MG TAB 1/2 tab PO BID GLIPIZIDE 64417275442 No Longer Active Marilee Shu Pena LAMISIL 250 MG TABS 1 PO QD TERBINAFINE HCL 10226333715 No Longer Active Marilee Shu Pena ATROVENT 0.06 % SOLN 2 puffs each nostril TID prn runny nose 2009 IPRATROPIUM BROMIDE 49204271854 No Longer Active Marilee Shu Pena MAGNESIUM OXIDE 400 MG CAPS 1 PO daily MAGNESIUM OXIDE 15274947514 No Longer Active Marilee Shu Pena FLAXSEED OIL CAPS 1 PO daily FLAXSEED (LINSEED) CAPS 24441129493 Active Marilee Shu Pena CALTRATE 600 PLUS-VIT D 600-200 MG-IU TABS 1 PO BID CALCIUM- VITAMIN D 50921038102 No Longer Active Marilee Shu Pena RANITIDINE HCL 150 MG CAPS 1 PO BID RANITIDINE HCL 55325977472 No Longer Active Marilee Shu Pena FIORINAL 325-50-40 MG CAP 1-2 PO Q6hrs prn headache [id number] 14469983130 No Longer Active Marilee Shu Pena METOPROLOL TARTRATE 50 MG TAB 1 PO BID METOPROLOL TARTRATE 01607595617 Active Cristy Olmstead LOTENSIN 10 MG TABS 1 PO daily BENAZEPRIL HCL 69685351492 No Longer Active Marilee Shu Pena TYLENOL EX ST ARTHRITIS PAIN TABS 2 PO Q6hrs prn ACETAMINOPHEN TABS 32705908256 Active Marilee Shu Pena MULTIVITAMINS TABS 1 PO QD MULTIPLE VITAMIN 60226424861 Active Marileeconstanza Pena HYDROCHLOROTHIAZIDE 12.5 MG CAPS 1 PO QD HYDROCHLOROTHIAZIDE 19576563862 Active Cristy Olmstead MEVACOR 20 MG TABS 1 PO daily LOVASTATIN Active Cristy Olmstead Immunizations Vaccine Administration Date Value Standard Description Influenza vaccine given done influenza virus vaccine, unspecified formulation dT (Diphtheria and Tetanus) booster given DONE Td(adult) unspecified formulation pneumococcal immunization administered 06/28 pneumococcal polysaccharide vaccine, 23 valent Influenza vaccine given Done [facility] [place] influenza virus vaccine, unspecified formulation [...] mmol/L carbon dioxide, venous blood 29.0 mmol/L creatinine, serum 1.8 mg/dL hemoglobin A1C, blood, as % of total hemoglobin 7.4 % potassium, serum 3.6 mmol/L protein, total, serum 7.3 g/dL aspartate aminotransferase (SGOT), serum 19 U/L anion gap, serum 14 sodium, serum 139 mmol/L bilirubin, serum, total 0.9 mg/dL alanine aminotransferase (SGPT), serum 14 U/L Clinical Lists Update: CBC,CMP,Chol,Trig,HgA1c - Hematology leukocyte count, blood 7.7 10*3/mm3 erythrocyte (RBC) count 4.29 10*6/mm3 platelet count 175 10*3/mm3 hemoglobin, blood 13.1 g/dL mean corpuscular volume, RBC 92 fL hematocrit, blood 40 % red blood cell distribution width 14.6 % Clinical Lists Update: CBC,CMP,FLP,HgA1c,TSH - Chemistry triglyceride, serum, fasting 244 mg/dL hemoglobin A1C, blood, as % of total hemoglobin 7.2 % HDL cholesterol, serum 32 mg/dL cholesterol, serum 142 mg/dL LDL cholesterol, serum 61.2 mg/dL Clinical Lists Update: CMP,Chol,Trig,HgA1c,Microalbumin - Chemistry Estimated Glomerular Filtration Rate (calc) 43 mL/min/1.73m2 glucose, plasma fasting 175 mg/dL anion gap, serum 11 sodium, serum 135 mmol/L triglyceride, serum, fasting 208 mg/dL bilirubin, serum, total 0.7 mg/dL alanine aminotransferase (SGPT), serum 22 U/L aspartate aminotransferase (SGOT), serum 24 U/L protein, total, serum 6.9 g/dL potassium, serum 4.0 mmol/L hemoglobin A1C, blood, as % of total hemoglobin 8.0 % creatinine, serum 1.6 mg/dL carbon dioxide, venous blood 29.0 mmol/L cholesterol, serum 125 mg/dL chloride, serum 99 mmol/L calcium, serum 9.6 mg/dL urea nitrogen, blood 23 mg/dL alkaline phosphatase, serum 56 U/L albumin, serum 4.1 g/dL Clinical Lists Update: CMP,Chol,Trig,HgA1c,Microalbumin - Urinalysis microalbumin, urine, semiquantitative 1.5 mg/dL Clinical Lists Update: CMP,FLP,HgA1c - Chemistry cholesterol/HDL ratio, serum, percent 3.9 anion gap, serum 9 sodium, serum 137 mmol/L triglyceride, serum, fasting 210 mg/dL bilirubin, serum, total 0.7 mg/dL alanine aminotransferase (SGPT), serum 21 U/L aspartate aminotransferase (SGOT), serum 27 U/L protein, total, serum 6.9 g/dL potassium, serum 4.0 mmol/L LDL cholesterol, serum 56 mg/dL hemoglobin A1C, blood, as % of total hemoglobin 7.4 % HDL cholesterol, serum 34.0 mg/dL creatinine, serum 1.6 mg/dL carbon dioxide, venous blood 31.0 mmol/L cholesterol, serum 132 mg/dL chloride, serum 101 mmol/L calcium, serum 10.0 mg/dL urea nitrogen, blood 22 mg/dL alkaline phosphatase, serum 43 U/L albumin, serum 4.2 g/dL Estimated Glomerular Filtration Rate (calc) 44 mL/min/1.73m2 glucose, plasma fasting 129 mg/dL Encounters Code Encounter Date Provider Facility CPT-64786 Ofc Vst, Est Level III 10:15:37 CDT Marilee Pena DO, FACP CPT-85842 Ofc Vst, Est Level III 16:47:51 CDT Marilee Pena DO, FACP CPT-73657 Ofc Vst, Est Level III 16:49:29 BLANKET INSPECTOR Marilee [facility] CPT-53732 Ofc Vst, Est Level III 11:45:17 CDT Marilee Pena DO, FACP CPT-60767 Ofc Vst, Est Level III 16:55:59 CDT Marilee [facility]u [facility] CPT-22223 Ofc Vst, Est Level III 11:16:25 CDT [facility] OFFICE CPT-27524 Ofc Vst, Est Level III 15:16:13 CDT Marilee [facility] OFFICE CPT-05988 Ofc Vst, Est Level III 21:31:17 BLANKET INSPECTOR [facility] CPT-91414 Ofc Vst, Est Level IV 15:44:47 CDT Marilee [facility] OFFICE CPT-05780 Ofc Vst, Est Level IV 14:28:11 CDT Marilee [facility] CPT-50555 Ofc Vst, Est Level IV 15:30:55 [facility] Ofc Vst, Est Level IV 14:06:31 CDT Marilee [facility] OFFICE CPT-53356 Ofc Vst, Est Level IV 14:01:46 BLANKET INSPECTOR [facility] CPT-12789 Ofc Vst, Est Level III 15:20:36 BLANKET INSPECTOR [facility] CPT-69984 Ofc Vst, Est Level III 10:52:40 BLANKET INSPECTOR [facility] CPT-79438 Ofc Vst, Est Level II 15:34:21 [facility] Ofc Vst, Est Level IV 14:05:49 [facility] Ofc Vst, Est Level IV 14:47:29 CDT [facility] CPT-74316 Ofc Vst, Est Level IV 14:02:33 BLANKET INSPECTOR [facility] CPT-42447 Ofc Vst, Est Level IV 14:04:39 CDT Marilee Shu [facility] CPT-44160 Ofc Vst, Est Level IV 15:17:07 CDT Marilee [facility] OFFICE CPT-52684 Ofc Vst, Est Level IV 14:05:04 CDT Marilee [facility] OFFICE CPT-61837 Ofc Vst, Est Level IV 11:16:18 CDT Marilee [facility] Corina Pena DO, FACP CPT-20421 Ofc Vst, Est Level IV 14:19:49 BLANKET INSPECTOR [facility] OFFICE CPT-97533 Ofc Vst, Est Level IV 14:00:36 CDT Marilee [facility] OFFICE CPT-95703 Ofc Vst, Est Level IV 15:03:56 CDT [facility] OFFICE CPT-58491 Ofc Vst, Est Level IV 14:08:16 CDT [facility] OFFICE CPT-82270 Ofc Vst, Est Level IV 15:16:25 CDT [facility] OFFICE CPT-94238 Ofc Vst, New Level IV 14:23:20 CDT [facility] Shu Pena [place] OFF[facility] Procedures Code Procedure Name Date Entry Date Standard Description CPT-G0439 Medicare Annual Wellness Visit 16:35:49 BLANKET INSPECTOR CPT-G8443 E-Prescribing Medication Sent 20:44:37 BLANKET INSPECTOR CPT-G0439 Medicare Annual Wellness Visit 20:44:37 BLANKET INSPECTOR CPT-G8445 E-Prescribing Not sent due to no medication given 11:16: 25 CDT CPT-G8445 E-Prescribing Not sent due to no medication given 15:16: 13 CDT CPT-G8446 E-Prescribing not done due to controlled substance 21:31 :17 BLANKET INSPECTOR CPT-G8443 E-Prescribing Medication Sent 13:44:31 BLANKET INSPECTOR CPT-G0439 Medicare Annual Wellness Visit 13:44:31 BLANKET INSPECTOR CPT-8446 E-Prescribing not done due to controlled substance 15:16: 25 CDT
--- NOTE | 2017-06-28 09:49 | ED Chest Pain ---
General Chief Complaint: General Problems/Pain Stated Complaint: HEADACHE,BACK PAIN,CHEST AND STOMACH DISCOMFORT Nursing Triage Note: AMBULATED TO ROOM 07 WITH COMPLAINTS OF A HEADACHE OFF AND ON SINCE THAT HAS BECAME WORSE. ALSO COMLPAINS OF RIGHT SIDED SHOULDER, NECK, AND CHEST PAIN OFF AND ON. Nursing Sepsis Screen: No Definite Risk Source: patient History of Present Illness Time seen by provider: 09:30 Initial Comments PT ARRIVES VIA POV FROM HOME PT STATES HE HAD MID CHEST PAIN AND RIGHT SHOULDER PAIN SINCE YESTERDAY STATES CHEST DOESN'T HURT ANYMORE, BUT PAIN HAS MOVED TO UPPER ABDOMEN, AND IS STILL IN RIGHT SHOULDER/SCAPULA/LATERAL NECK AREA ALSO C/O CHRONIC HEADACHE SINCE 1996 STATES PAIN WAS CONSTANT ALL DAY YESTERDAY AND CONTINUES TODAY PT MAINLY C/O PAIN IN RIGHT SHOULDER AREA AND HEADACHE NO SHORTNESS OF BREATH NO SWEATS NO NAUSEA/VOMITING NO DIZZINESS NO PALPITATIONS NO COUGH HAS NOT TAKEN ANYTHING FOR PAIN PCP: DR. DESIR Allergies and Home Medications Allergies Coded Allergies: Penicillins (Verified Allergy, Unknown, 09/12/07) aspirin (Verified Allergy, Unknown, 09/12/07) lisinopril (Verified Allergy, Unknown, 09/12/07) Home Medications Glyburide 1.25 Mg Tablet, 1.25 MG PO BID, (Reported) Hydrochlorothiazide 12.5 Mg Cap, 12.5 MG PO DAILY, (Reported) Lovastatin 20 Mg Tablet, 20 MG PO DAILY, (Reported) Metoprolol Succinate 50 Mg Tab, 50 MG PO BID, (Reported) Multivitamins 1 Tab Tablet, (Reported) Omeprazole 20 Mg Tablet.dr, 20 MG PO BID, (Reported) Review of Systems Constitutional: no symptoms reported EENTM: No Symptoms Reported Respiratory: No Symptoms Reported Cardiovascular: See HPI, Chest Pain Gastrointestinal: See HPI, Abdominal Pain, Denies Nausea, Denies Vomiting Genitourinary: No Symptoms Reported Musculoskeletal: see HPI Skin: no symptoms reported Psychiatric/Neurological: See HPI, Headache, Denies Numbness, Denies Paresthesia, Pre-Existing Deficit (LEFT FACIAL PARALYSIS), Denies Seizure, Denies Tingling, Denies Tremors, Denies Weakness Endocrine: No Symptoms Reported Hematologic/Lymphatic: No Symptoms Reported Past Esdyahy-Cninwq-Fotsag Hx Patient Social History Alcohol Use: Past History (NONE FOR > 20 YEARS) Recreational Drug Use: No Smoking Status: Former Smoker (STARTED AT AGE 15, QUIT 1968) Type Used: Cigarettes Recent Foreign Travel: No Contact w/Someone Who Travel: No Recent Infectious Disease Expo: No Recent Hopitalizations: No Immunizations Up To Date Date of Pneumonia Vaccine: March 30, 2013 Date of Influenza Vaccine: Aug 15, 2016 Seasonal Allergies Seasonal Allergies: No Surgeries HX Surgeries: Yes (HERNIA X3, R TKR, left thumb joint replaced, bilat cataract removed; COLON RESECTION FOR DIVERTICULITIS; RIGHT SHOULDER SCOPE; REMOVAL OF BENIGN BLADDER TUMOR; SKIN CANCER REMOVED RIGHT HAND) Surgeries: Abdominal, Appendectomy, Bladder Surgery, Bowel Surgery, Gallbladder , Orthopedic Respiratory Hx Respiratory Disorders: No Cardiovascular Hx Cardiac Disorders: Yes Cardiac Disorders: High Cholesterol, Hypertension Neurological Hx Neurological Disorders: Yes (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 ) Neurological Disorders: Headaches /Migraines, Paralysis Reproductive System Hx Reproductive Disorders: No Sexually Transmitted Disease: Yes (GONORRHEA MANY YEARS AGO) Genitourinary Hx Genitourinary Disorders: Yes (BENIGN BLADDER TUMOR) Gastrointestinal Hx Gastrointestinal Disorders: Yes Gastrointestinal Disorders: Abdominal Hernia, Gastroesophageal Reflux, Hiatal Hernia, Gall Bladder Disease Musculoskeletal Hx Musculoskeletal Disorders: Yes Musculoskeletal Disorders: Arthritis Endocrine Hx Endocrine Disorders: Yes Endocrine Disorders: Diabetes, Non-Insulin dep HEENT HX ENT Disorders: Yes (HAS " ONE VOCAL CORD THAT DOESN'T WORK", cataracts removed) HEENT Disorders: Cataract Loss of Vision: Denies Hearing Impairment: Denies Cancer Hx Cancer: Yes Cancer: Skin Psychosocial Hx Psychiatric Problems: No Integumentary HX Skin/Integumentary Disorder: Yes (SKIN CANCER) Blood Transfusions Hx Blood Disorders: No Physical Exam Vital Signs Vital Sign - Last 12Hours 06/28/17 09:25 Temp 98.0 Pulse 63 Resp 16 B/P (MAP) 147/71 Pulse Ox 96 Capillary Refill : Less Than 3 Seconds General Appearance: No Apparent Distress, WD/WN HEENT: Other (LEFT FACIAL PARALYSIS) Neck: Full Range of Motion, Normal Inspection, Non Tender, Supple, No Carotid Bruit, No JVD Respiratory: Chest Non Tender, Normal Breath Sounds, No Accessory Muscle Use, No Respiratory Distress Cardiovascular: Regular Rate, Rhythm, No Edema, No JVD, No Murmur, Normal Peripheral Pulses Gastrointestinal: Normal Bowel Sounds, No Organomegaly, No Pulsatile Mass, Non Tender, Soft Extremity: Normal Capillary Refill, Normal Inspection, Normal Range of Motion, Non Tender, No Calf Tenderness, No Pedal Edema Neurologic/Psychiatric: Alert, Oriented x3, Normal Mood/Affect, Other (LEFT FACIAL PARALYSIS) Skin: Normal Color, Warm/Dry, Tattoos/Piercings (EXTENSIVE TATTOOS) Progress/Results/Core Measures Results/Orders Lab Results Laboratory Tests Test 06/28/17 09:45 Range/Units White Blood Count 10.3 4.3-11.0 10^3/uL Red Blood Count 4.21 L 4.35-5.85 10^6/uL Hemoglobin 12.8 L 13.3-17.7 G/DL Hematocrit 38 L 40-54 % Mean Corpuscular Volume 91 80-99 FL Mean Corpuscular Hemoglobin 30 25-34 PG Mean Corpuscular Hemoglobin Concent 34 32-36 G/DL Red Cell Distribution Width 13.8 10.0-14.5 % Platelet Count 158 130-400 10^3/uL Mean Platelet Volume 11.7 H 7.4-10.4 FL Neutrophils (%) (Auto) 71 42-75 % Lymphocytes (%) (Auto) 17 12-44 % Monocytes (%) (Auto) 11 0-12 % Eosinophils (%) (Auto) 1 0-10 % Basophils (%) (Auto) 0 0-10 % Neutrophils # (Auto) 7.3 1.8-7.8 X 10^3 Lymphocytes # (Auto) 1.7 1.0-4.0 X 10^3 Monocytes # (Auto) 1.1 H 0.0-1.0 X 10^3 Eosinophils # (Auto) 0.1 0.0-0.3 10^3/uL Basophils # (Auto) 0.0 0.0-0.1 10^3/uL Prothrombin Time 13.4 12.2-14.7 SEC INR Comment 1.1 0.8-1.4 Activated Partial Thromboplast Time 29 24-35 SEC Sodium Level 136 135-145 MMOL/L Potassium Level 4.0 3.6-5.0 MMOL/L Chloride Level 101 98-107 MMOL/L Carbon Dioxide Level 25 21-32 MMOL/L Anion Gap 10 5-14 MMOL/L Blood Urea Nitrogen 18 7-18 MG/DL Creatinine 1.64 H 0.60-1.30 MG/DL Estimat Glomerular Filtration Rate 40 BUN/Creatinine Ratio 11 Glucose Level 292 H 70-105 MG/DL Calcium Level 9.6 8.5-10.1 MG/DL Magnesium Level 1.7 L 1.8-2.4 MG/DL Total Bilirubin 0.8 0.1-1.0 MG/DL Aspartate Amino Transf (AST/SGOT) 21 5-34 U/L Alanine Aminotransferase (ALT/SGPT) 19 0-55 U/L Alkaline Phosphatase 53 40-136 U/L Total Creatine Kinase 77 30-200 U/L Creatine Kinase MB 1.6 <6.6 NG/ML Troponin I < 0.30 <0.30 NG/ML B-Type Natriuretic Peptide 58.5 <100.0 PG/ML Total Protein 6.8 6.4-8.2 GM/DL Albumin 3.6 3.2-4.5 GM/DL Amylase Level 39 25-125 U/L Lipase 65 8-78 U/L My Orders Orders - JADLAI DO Saline Lock/Iv-Start (06/28/17 09:42) Ekg Tracing (06/28/17 09:42) O2 (06/28/17 09:42) Monitor-Rhythm Ecg Trace Only (06/28/17 09:42) Amylase (06/28/17 09:42) BNP (06/28/17 09:42) Cbc With Automated Diff (06/28/17 09:42) Comprehensive Metabolic Panel (06/28/17 09:42) Creatine Kinase (06/28/17 09:42) Creatine Kinase Mb (06/28/17 09:42) Lipase (06/28/17 09:42) Magnesium (06/28/17 09:42) Protime With Inr (06/28/17 09:42) Partial Thromboplastin Time (06/28/17 09:42) Troponin I (06/28/17 09:42) Chest 1 View, Ap/Pa Only (06/28/17 09:42) Ct Chest/Abdomen/Pelvis Wo (06/28/17 11:18) Vital Signs/I&O Vital Sign - Last 12Hours 06/28/17 09:25 Temp 98.0 Pulse 63 Resp 16 B/P (MAP) 147/71 Pulse Ox 96 Blood Pressure Mean: 96 Progress Note : Progress Note PT HAD NO COMPLAINTS OF CHEST OR ABDOMINAL PAIN DURING ER STAY PT IS ADAMANT ABOUT GOING HOME--DOES NOT WANT TO STAY IN HOSPITAL ECG Initial ECG Impression Time: 09:39 Initial ECG Rate: 63 Initial ECG Rhythm: Normal Sinus Initial ECG Impression: Normal Initial ECG Comparisson: No Previous ECG Available Diagnostic Imaging Comments CXR--NO ACUTE PROCESS, PER RADIOLOGIST REPORT @ 1009 CT CHEST/ABDOMEN/PELVIS--NO ACUTE PROCESS, UNCHANGED KIDNEY STONES, UNCHANGED DIVERTICULAR DISEASE, AND RAUDEL TINY, CHRONIC/UNCHANGED AAA DISSECTION--PER DR PARISI VIA PHONE AT 1204 AND 1207 Reviewed: Reviewed by Me, Discussed w/Radiologist, Reviewed/Discussed Departure Communication Progress Notes 1205--SPOKE WITH DR. DESIR, SHE WILL SEE PT IN OFFICE THIS WEEK Impression Impression: Primary Impression: Chest pain Additional Impression: Epigastric abdominal pain Disposition: 01 HOME, SELF-CARE Condition: Stable Departure-Patient Inst. Referrals: LEI DESIR DO (PCP/Family) Primary Care Physician Patient Instructions: Acute Abdomen (Belly Pain), Adult (DC), Chest Pain (DC) Add. Discharge Instructions: CONTINUE YOUR MEDICATIONS PRESCRIBED FOLLOW UP WITH DR. DESIR THIS WEEK FOR FURTHER CARE RETURN TO ER IF WORSE All discharge instructions reviewed with patient and/or family. Voiced understanding. LAI STREET DO Jun 28, 2017 09:49
[2017-06-28 09:54] LABS: BASOPHILS % (AUTO) 0 % (0-10); EOSINOPHILS # (AUTO) 0.1 10^3/uL (0.0-0.3); EOSINOPHILS % (AUTO) 1 % (0-10); LYMPHOCYTES # (AUTO) 1.7 X 10^3 (1.0-4.0); LYMPHOCYTES % (AUTO) 17 % (12-44); MEAN CORPUSCULAR HEMOGLOBIN 30 PG (25-34); MEAN CORPUSCULAR HGB CONC 34 G/DL (32-36); MEAN CORPUSCULAR VOLUME 91 FL (80-99); MEAN PLATELET VOLUME 11.7 FL (7.4-10.4); MONOCYTES # (AUTO) 1.1 X 10^3 (0.0-1.0); MONOCYTES % (AUTO) 11 % (0-12); NEUTROPHILS # (AUTO) 7.3 X 10^3 (1.8-7.8); NEUTROPHILS % (AUTO) 71 % (42-75); PLATELET COUNT 158 10^3/uL (130-400); RED BLOOD COUNT 4.21 10^6/uL (4.35-5.85); RED CELL DISTRIBUTION WIDTH 13.8 % (10.0-14.5); WHITE BLOOD COUNT 10.3 10^3/uL (4.3-11.0)
[2017-06-28 10:06] LABS: INR 1.1 (0.8-1.4); PROTHROMBIN TIME PATIENT 13.4 SEC (12.2-14.7)
--- NOTE | 2017-06-28 10:06 | Diagnostic Imaging Report ---
INDICATION: Pain. COMPARISON: 01/16/2017 FINDINGS: Upright portable view of the chest is obtained. Heart size is normal. The pulmonary vessels appear unremarkable. There is no pneumothorax, mediastinal widening or pleural fluid demonstrated. Lungs are clear. No new abnormality is seen. IMPRESSION: No evidence of an acute cardiopulmonary abnormality. No interval change from the prior study. Dictated by: Dictated on workstation # [id number]
[2017-06-28 10:16] LABS: ALANINE AMINOTRANSFERASE 19 U/L (0-55); ALBUMIN 3.6 GM/DL (3.2-4.5); AMYLASE 39 U/L (25-125); ANION GAP 10 MMOL/L (5-14); ASPARTATE AMINO TRANSFERASE 21 U/L (5-34); BILIRUBIN,TOTAL 0.8 MG/DL (0.1-1.0); BLOOD UREA NITROGEN 18 MG/DL (7-18); BUN/CREATININE RATIO 11; CALCIUM 9.6 MG/DL (8.5-10.1); CARBON DIOXIDE 25 MMOL/L (21-32); CHLORIDE 101 MMOL/L (98-107); CREATINE KINASE 77 U/L (30-200); CREATININE SERUM 1.64 MG/DL (0.60-1.30); GFR ESTIMATED 40; GLUCOSE 292 MG/DL (70-105); LIPASE 65 U/L (8-78); MAGNESIUM 1.7 MG/DL (1.8-2.4); SODIUM 136 MMOL/L (135-145); TOTAL PROTEIN 6.8 GM/DL (6.4-8.2)
[2017-06-28 10:23] LABS: TROPONIN I < 0.30 NG/ML (<0.30)
[2017-06-28 12:23] VITALS: BP 128/63
--- NOTE | 2017-06-28 12:32 | Diagnostic Imaging Report ---
PROCEDURE: CT chest, abdomen, and pelvis without contrast. TECHNIQUE: Multiple contiguous axial images were obtained through the chest, abdomen, and pelvis without the use of intravenous contrast. INDICATION: Chest pain. There are no previous CT chest examinations available for comparison. The CT abdomen/ pelvis exam of 03/23/2016, noted diverticulosis of the colon but failed to show any sign of diverticulitis. There are also nonobstructive calculi in both kidneys. The images through the thorax show that the heart size is within normal limits. There are dense coronary artery calcifications evident. The aorta is not abnormally dilated, and there is no distortion of the periaortic tissues to suggest an acute abnormality of the aorta. The abdominal aorta is also of normal caliber. There is a very slight bulge along the lateral aspect of the abdominal aorta on the right just proximal to the bifurcation (image 72 of 136.) This measures approximately 2.3 x 8.0 x 13.0 MM. This finding was also present on the prior exam and has not changed. I suspect that this is a small chronic dissection. There is no acute abnormality of the abdominal aorta. The lungs are clear. There is no evidence for a failure, pneumonia, or for a pleural effusion. There is no mediastinal or hilar adenopathy noted although this exam is limited in evaluation of adenopathy due to the absence of intravenous contrast. The thyroid gland is unremarkable. The sections through the abdomen and pelvis show that the liver is fairly homogeneous and similar in size to the prior exam. The spleen, pancreas, adrenals, and inferior vena cava also seem stable. As noted on the prior exam the gallbladder is surgically absent. The small nonobstructive calculi within the kidneys seen previous are again visualized and no different. There is no obstruction of either collecting system, and there is no sign of a solid renal mass. As noted on the prior exam, there are numerous diverticula throughout the colon. There is no sign of acute diverticulitis. The urinary bladder is grossly unremarkable. The prostate gland is mildly enlarged but stable in size when compared to the prior study. The bone windows are unremarkable for a fracture or for a destructive lesion. IMPRESSION: 1. There is no evidence for an acute abnormality of the chest, abdomen, or pelvis. In particular there is no sign of an acute abnormality of the aorta. 2. 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 3. The nonobstructive calculi within the kidneys seen previously are again evident and no different. There is also again evidence of extensive diverticulosis of the colon without any sign of diverticulitis. 4. These results were discussed with Dr. Bahena in the ER. Dictated by: Dictated on workstation # [id number]
== END 2017-06-28 12:23 | disposition home or self-care (01) ==
LOC: EDUNIT# 09:25 → ER 09:27
DX: Z04.3 Encounter for examination and observation following other accident (principal)
CPT/HCPCS: 36415; 71010; 71250; 74176; 80053; 82150; 82550; 82553; 83690; 83735; 83880; 84484; 85025; 85610; 85730; 93041